=== PATIENT | female | born 1975 | race Caucasian/White ===

== ENCOUNTER 2018-03-07 07:01 | Emergency (ER) | payer OTHER ==
[~2018-03-07] VITALS: Ht 165.1 cm; Wt 63.5 kg
[~2018-03-07 07:01] MED LIST: IBUPROFEN800 MG PO; NORFLEX100MG PO
== END 2018-03-07 16:02 | disposition home or self-care (01) ==
LOC: ER 07:01
DX: K52.9 Noninfective gastroenteritis and colitis, unspecified (principal)

== ENCOUNTER 2018-08-06 00:40 | Emergency (ER) | payer OTHER ==
[~2018-08-06] VITALS: Ht 165.1 cm; Wt 67.1 kg
[2018-08-06] MEDS ORDERED: CETIRIZINE HCL10 MG PO (04:54)
[2018-08-06] MEDS ORDERED: KETO10TA2 PO (04:54)
[2018-08-06] MEDS ORDERED: AIRBORNE EFFER1 EACH PO (04:54)
[2018-08-06] MEDS ORDERED: BUTALB-ACETAMI1 EACH PO (04:54)
== END 2018-08-06 05:16 | disposition home or self-care (01) ==
LOC: ER 00:40
DX: B34.9 Viral infection, unspecified (principal); J31.2 Chronic pharyngitis

== ENCOUNTER 2019-03-15 21:15 | Emergency (ER) | payer OTHER ==
[~2019-03-15] VITALS: Ht 165.1 cm; Wt 64.4 kg
[~2019-03-15 21:15] MED LIST changes: +AIRBORNE EFFER1 EACH PO; +BUTALB-ACETAMI1 EACH PO; +CETIRIZINE HCL10 MG PO; +KETO10TA2 PO
[2019-03-15] MEDS ORDERED: PEPCID AC20 MG PO (21:48)
[2019-03-15] MEDS ORDERED: PRILOSEC OTC20 MG PO (21:48)
== END 2019-03-16 01:33 | disposition home or self-care (01) ==
LOC: ER 21:15
DX: J03.90 Acute tonsillitis, unspecified (principal)

== ENCOUNTER 2019-03-22 12:42 | Emergency (ER) | payer OTHER ==
[~2019-03-22] VITALS: Ht 165.1 cm; Wt 64.4 kg
[~2019-03-22 12:42] MED LIST changes: +PEPCID AC20 MG PO; +PRILOSEC OTC20 MG PO
== END 2019-03-22 20:05 | disposition home or self-care (01) ==
LOC: ER 12:42
DX: J03.90 Acute tonsillitis, unspecified (principal)

== ENCOUNTER 2019-09-20 20:30 | Emergency (ER) | payer OTHER ==
[~2019-09-20] VITALS: Ht 165.1 cm; Wt 64.0 kg
== END 2019-09-21 00:09 | disposition home or self-care (01) ==
LOC: ER 20:30
DX: K52.89 Other specified noninfective gastroenteritis and colitis (principal); E86.0 Dehydration; E87.8 Other disorders of electrolyte and fluid balance, not elsewhere classified; Z03.818 Encounter for observation for suspected exposure to other biological agents ruled out

== ENCOUNTER 2021-12-21 06:39 | Emergency (ER) | payer OTHER ==
[~2021-12-21] VITALS: Ht 165.1 cm; Wt 65.8 kg
[2021-12-21] MEDS ORDERED: TUSSI PRES-B L480 ML PO (11:15)
== END 2021-12-21 11:26 | disposition home or self-care (01) ==
LOC: ER 06:39
DX: B34.8 Other viral infections of unspecified site (principal)